=== PATIENT | male | born 1980 ===

== ENCOUNTER 2018-05-25 18:40 | Observation (INO) | payer MEDICAID ==
[2018-05-25 18:48] VITALS: BMI 34.4
[2018-05-25] MEDS ORDERED: Sodium Chloride 0.9% 1,000 ML IV STA (19:35)
--- NOTE | 2018-05-25 20:01 | ED PDOC ---
Arrival/HPI - General Historian: Patient - History of Present Illness Time/Duration: 4-6 hours Symptom Onset: Sudden <Romario Dockery - Last Filed: 05/25/18 22:49> <Evans Stephens - Last Filed: 05/25/18 23:17> - General Chief Complaint: Flu-like Symptoms Time Seen by Provider: 05/25/18 18:53 - History of Present Illness Narrative History of Present Illness (Text): PGY-[address] 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 Pt states that this morning he woke feeling these general symptoms before going to the methadone clinic where he received 88 mg methadone. Pt states that the methadone failed to relieve his symptoms at all and patient felt he was experiencing withdrawal symptoms, so patient took 1 bag of heroine IV. The patient came to the ED this evening as he symptoms continued to persist. Pt denies currently using heroin regularly, however did admit to using 3 bags 3 days ago. Pt vomited yellow vomitus this morning without blood. Pt also admitted to experiencing diarrhea earlier. Pt is also complaining of acute lower back pain causing discomfort while lying flat. 05/25/18 22:41 (Romario Dockery) Past Medical History - Cardiac Hx Cardiac Disorders: No (denies) - Psychiatric Hx Substance Use: Yes (heroin, cocaine, marijuana) - Anesthesia Hx Anesthesia: No <Romario Dockery - Last Filed: 05/25/18 22:49> Family/Social History Family/Social History: No Known Family HX Smoking Status: Heavy Smoker > 10 Cigarettes Daily Hx Alcohol Use: Yes Frequency of alcohol use: Few days per week Hx Substance Use: Yes (heroin, cocaine, marijuana) <Romario Dockery - Last Filed: 05/25/18 22:49> <Evans Stephens - Last Filed: 05/25/18 23:17> Narrative Family History (Free Text): 05/25/18 20:02 Mother: DM Father: Esophageal CA in 70s (Romario Dockery) Allergies/Home Meds <Romario Dockery - Last Filed: 05/25/18 22:49> <NikaJoshua camarillosudhakar Smith - Last Filed: 05/25/18 23:17> Allergies/Adverse Reactions: Allergies No Known Allergies Allergy (Verified 05/25/18 18:48) Review of Systems - Review of Systems Constitutional: Fatigue, Other (+Chills) Eyes: Normal. absent: Photophobia, Eye Pain ENT: Normal Respiratory: Normal. absent: SOB, Cough, Sputum Cardiovascular: Palpitations. absent: Chest Pain, Edema, TYLER Gastrointestinal: Constipation, Nausea, Vomiting. absent: Abdominal Pain, Stool Changes, Hematochezia, Hematemesis Genitourinary Male: absent: Frequency, Hematuria Musculoskeletal: Back Pain Skin: Normal Neurological: Dizziness. absent: Headache <Romario Dockery - Last Filed: 05/25/18 22:49> Physical Exam Temperature: Afebrile Blood Pressure: Hypertensive Pulse: Tachycardic Respiratory Rate: Normal Appearance: Positive for: Ill-Appearing Pain Distress: Mild Mental Status: Positive for: Alert and Oriented X 3. No: Confused, Agitated - Systems Exam Head: Present: Atraumatic, Normocephalic Pupils: Present: PERRL Extroacular Muscles: Present: EOMI Conjunctiva: Present: Normal Mouth: Present: Moist Mucous Membranes Pharnyx: Present: Normal. No: ERYTHEMA, EXUDATE Nose (External): Present: Atraumatic Cardiovascular: Present: Regular Rate and Rhythm, Normal S1, S2, Peripheal Pulses Present. No: Murmurs Abdomen: Present: Normal Bowel Sounds. No: Tenderness, Distention, Rebound, Guarding Upper Extremity: Present: NORMAL PULSES, Other (+track nunn present on R forearm) Lower Extremity: Present: Normal Inspection, NORMAL PULSES. No: Edema Neurological: Present: GCS=15, CN II-XII Intact, Speech Normal, Motor Func Grossly Intact, Normal Sensory Function, Normal Cerebellar Funct, Normal 2Pt Descrimination Skin: Present: Warm, Normal Color Psychiatric: Present: Alert, Oriented x 3 <Romario Dockery - Last Filed: 05/25/18 22:49> <KatEvans L - Last Filed: 05/25/18 23:17> Vital Signs Temp Pulse Resp BP Pulse Ox 05/25/18 22:48 100.2 F H 05/25/18 22:33 100.2 F H 62 16 144/78 99 05/25/18 19:16 113 H 20 141/72 100 05/25/18 18:57 99.1 F 18 141/72 100 Medical Decision Making <Romario Dockery - Last Filed: 05/25/18 22:49> <Evans Stephens - Last Filed: 05/25/18 23:17> ED Course and Treatment: 05/25/18 20:08 Patient is being treated symptomatically for acute opioid withdrawal Recieved Methodone 88mg this morning, used one bag heroin IV this morning Recieved IV Zofran 4mg, IV ativan 2mg, 1 IV bolus NS Continue to treat symptomatically and reassess in one hour 05/25/18 22:42 SIRS criteria: Fever 103F, Pulse 91 Tylenol given for fever Fever: Lumbar/paraspinal tenderness appreciated - CT Lumbar Spine to r/o Spinal abscess 2/2 IVDU; admitted to diarrhea- possible viral etiology 05/25/18 22:44 (Romario Dockery) 05/25/18 21:14 Fermin Leary is a 37 year old male who presents to the emergency department with a complaint of chills, nausea, vomiting, diarrhea, headache, and fatigue all of which began this morning. In agreement with resident note, which includes further HPI details. Patient was seen and evaluated with resident, came up with plan and treatment together. Patient has symptoms of opiate withdrawal. RN informed us he had Temp of 103F orally. He was treated with tylenol and improved. Continued IV fluids. Since patient was c/o low lumbar pain in an IVDU will consider spinal abscess. No saddle anesthesia. 5/5 MS, sensation intaction. He says he's had this back pain on and off for a while. 05/25/18 23:16: Patient appears much better. He is no longer having back pain and is walking with no issues. Sign out to Dr. Conner to f/u labs and CT. Reeval and disposition. (Evans Stephens) - Lab Interpretations Lab Results: 05/25/18 21:45 Lab Results 05/25/18 21:45: WBC 5.0, RBC 4.01, Hgb 12.4 L, Hct 37.4 L, MCV 93.3, MCH 30.9, MCHC 33.2, RDW 13.9, Plt Count 156, MPV 10.3, Gran % 96.0 H, Lymph % (Auto) 3.0 L, [place] % (Auto) 0.6 L, Eos % (Auto) 0.4 L, Baso % (Auto) 0.0, Gran # 4.82, Lymph # (Auto) 0.2 L, [place] # (Auto) 0.0 L, Eos # (Auto) 0.0, Baso # (Auto) 0.00 , Neutrophils % (Manual) Pending, Lymphocytes % (Manual) Pending, Monocytes % ( Manual) Pending - RAD Interpretation Radiology Orders: 05/25/18 21:02 LUMBAR SPINE W/CONTRAST [CT] Stat - Medication Orders Current Medication Orders: Discontinued Medications Acetaminophen (Tylenol 325mg Tab) 975 mg PO STAT STA Stop: 05/25/18 22:32 Last Admin: 05/25/18 22:48 Dose: 975 mg MAR Pain/Vitals Document 05/25/18 22:48 MS (Rec: 05/25/18 22:48 MS [id number]) Pain Reassessment Is This A Pain ReAssessment? No Sleep Is patient sleeping during reassessment? No Presence of Pain Presence of Pain Yes Vitals Temperature (97.6 F-99.6 F) 100.2 F Temperature Source Oral Sodium Chloride (Sodium Chloride 0.9%) 1,000 mls @ 999 mls/hr IV .Q1H1M STA Stop: 05/25/18 20:35 Last Admin: 05/25/18 20:30 Dose: 999 mls/hr eMAR Start Stop Document 05/25/18 20:30 MS (Rec: 05/25/18 20:50 MS [id number]) Intravenous Solution Start Date 05/25/18 Start Time 20:50 End Date 05/25/18 End time 21:50 Total Infusion Time 60 Lorazepam (Ativan) 2 mg IVP ONCE ONE PRN Reason: Protocol Stop: 05/25/18 19:32 Last Admin: 05/25/18 20:30 Dose: 2 mg IVP Administration Document 05/25/18 20:30 MS (Rec: 05/25/18 20:49 MS [id number]) Charges for Administration # of IVP Administrations 1 Ondansetron HCl (Zofran Inj) 4 mg IVP STAT STA Stop: 05/25/18 19:41 Last Admin: 05/25/18 20:30 Dose: 4 mg IVP Administration Document 05/25/18 20:30 MS (Rec: 05/25/18 20:50 MS [id number]) Charges for Administration # of IVP Administrations 1 <Romario Dockery - Last Filed: 05/25/18 22:49> - Scribe Statement The provider has reviewed the documentation as recorded by the Scribe <Evans Stephens - Last Filed: 05/25/18 23:17> - Scribe Statement Rosetta Law Provider Scribe Attestation: All medical record entries made by the Scribe were at my direction and personally dictated by me. I have reviewed the chart and agree that the record accurately reflects my personal performance of the history, physical exam, medical decision making, and the department course for this patient. I have also personally directed, reviewed, and agree with the discharge instructions and disposition. (Evans Stephens) Disposition/Present on Arrival - Present on Arrival Any Indicators Present on Arrival: No History of DVT/PE: No History of Uncontrolled Diabetes: No Urinary Catheter: No History of Decub. Ulcer: No History Surgical Site Infection Following: None - Disposition Have Diagnosis and Disposition been Completed?: Yes Disposition Time: 22:49 <Romario Dockery - Last Filed: 05/25/18 22:49> <Evans Stephens - Last Filed: 05/25/18 23:17> - Disposition Diagnosis: Opioid withdrawal Patient Problems: Current Active Problems Problem Status Onset Opioid withdrawal Acute Condition: FAIR Referrals: Colin Landry MD [Primary Care Provider] - Follow up with primary Forms: [facility] ([place])
[2018-05-25] MEDS ORDERED: Morphine 4 mg/ml ISec IVP STA (21:04)
[2018-05-25 22:30] LABS: EOS % 0.4 % (1.5-5.0); GRAN # 4.82 (1.4-6.5); HEMOGLOBIN 12.4 g/dL (14.0-18.0); LYMPH # 0.2 (1.2-3.4); MEAN CELL VOLUME 93.3 fl (80.0-105.0); MEAN CORPUSCULAR HEMOGLOBIN 30.9 pg (25.0-35.0); MEAN CORPUSCULAR HGB CONC 33.2 g/dl (31.0-37.0); MEAN PLATELET VOLUME 10.3 fl (7.0-11.0); MONO % 0.6 % (1.0-6.0); PLATELET COUNT 156 10^3/uL (120.0-450.0); RBC 4.01 10^6/uL (3.5-6.1); RED CELL DISTRIBUTION WIDTH 13.9 % (11.5-14.5)
[2018-05-25] MEDS ORDERED: Iohexol 300 100 ML IJ ONE (22:45)
[2018-05-25 23:37] LABS: ALB/GLOB RATIO 1.1 (1.1-1.8); ALBUMIN 3.7 g/dL (3.0-4.8); ALT/SGPT 124 U/L (7-56); AST/SGOT 195 U/L (17-59); BLOOD UREA NITROGEN 24 mg/dL (7-21); CALCIUM 8.7 mg/dL (8.4-10.5); GFR AFRICAN-AMERICAN > 60; GFR NON-AFRICAN AMERICAN > 60
[2018-05-25] MEDS ORDERED: SODIUM CHLORIDE IVPB ONE (23:45)
[2018-05-25] MEDS ORDERED: POTASSIUM PHOSPHATE IVPB ONE (23:45)
--- NOTE | 2018-05-26 00:01 | ED PDOC ---
Physical Exam Vital Signs Temp Pulse Resp BP Pulse Ox 05/25/18 22:48 100.2 F H 05/25/18 22:33 100.2 F H 62 16 144/78 99 05/25/18 19:16 113 H 20 141/72 100 05/25/18 18:57 99.1 F 18 141/72 100 Medical Decision Making ED Course and Treatment: 05/25/18 23:30 Case endorsed to me by Dr. Stephens pending CT Scan of lumbar spine. Patient presents complaining of flu-like symptoms, chills, nausea, and generalized fatigue. Patient has a history of IV heroin abuse on Methadone. Patient states he had taken a bag of heroin intravenously and believed he may have been having withdrawal symptoms. Patient with persistent symptoms brings him to the emergency room. Patient noted to have a fever in the emergency room. There was a low level suspicion for possible spinal involvement due to history of patient' s substance abuse. Just noted patient with very low phosphorous level on labs.Also noted bandemia on CBC differential Patient currently stable and ambulatory in ER with no complaints. EXAM: CT Lumbar Spine With Intravenous Contrast Dictated and Authenticated by: Sonny Salazar MD 05/26/2018 1:21 AM IMPRESSION: No acute findings. 05/26/18 01:40 case discussed with Sales And Service Technician and Dr. Gutierrez Flores who is aware and agrees with the plan. Accepts patient into hospitalist service for further evaluation.Supplemental IV phosphate/iv antibiotics started. - Lab Interpretations Lab Results: 05/25/18 21:45 05/25/18 22:49 Lab Results 05/25/18 22:49: Sodium 135, Potassium 4.0, Chloride 100, Carbon Dioxide 26, Anion Gap 13, BUN 24 H, Creatinine 1.3, Est GFR ( Amer) > 60, Est GFR ( Non-Af Amer) > 60, Random Glucose 171 H, Calcium 8.7, Phosphorus 0.6 L*, Magnesium 1.4 L, Total Bilirubin 0.8, AST 195 H, ALT 124 H, Alkaline Phosphatase 91, Total Protein 7.1, Albumin 3.7, Globulin 3.3, Albumin/Globulin Ratio 1.1 05/25/18 21:45: WBC 5.0, RBC 4.01, Hgb 12.4 L, Hct 37.4 L, MCV 93.3, MCH 30.9, MCHC 33.2, RDW 13.9, Plt Count 156, MPV 10.3, Gran % 96.0 H, Lymph % (Auto) 3.0 L, [place] % (Auto) 0.6 L, Eos % (Auto) 0.4 L, Baso % (Auto) 0.0, Gran # 4.82, Lymph # (Auto) 0.2 L, [place] # (Auto) 0.0 L, Eos # (Auto) 0.0, Baso # (Auto) 0.00 , Neutrophils % (Manual) 79 H, Band Neutrophils % 11 H*, Lymphocytes % (Manual) 8 L, Monocytes % (Manual) TEST NOT PERFORMED, Eosinophils % (Manual) 1, Metamyelocytes % 1, Platelet Evaluation Normal - RAD Interpretation Radiology Orders: 05/25/18 21:02 LUMBAR SPINE W/CONTRAST [CT] Stat - Medication Orders Current Medication Orders: Potassium Phosphate 7.5 mmole/ (Sodium Chloride) 252.5 mls @ 42.5 mls/hr IVPB ONCE ONE Stop: 05/26/18 05:41 Last Admin: 05/26/18 01:54 Dose: 42.5 mls/hr eMAR Start Stop Document 05/26/18 01:54 MS (Rec: 05/26/18 01:55 MS [id number]) Intravenous Solution Start Date 05/26/18 Start Time 01:54 Vancomycin HCl (Vancomycin 1gm) 1 gm in 250 mls @ 167 mls/hr IVPB STAT STA PRN Reason: Protocol Stop: 05/26/18 02:10 Discontinued Medications Acetaminophen (Tylenol 325mg Tab) 975 mg PO STAT STA Stop: 05/25/18 22:32 Last Admin: 05/25/18 22:48 Dose: 975 mg MAR Pain/Vitals Document 05/25/18 22:48 MS (Rec: 05/25/18 22:48 MS [id number]) Pain Reassessment Is This A Pain ReAssessment? No Sleep Is patient sleeping during reassessment? No Presence of Pain Presence of Pain Yes Vitals Temperature (97.6 F-99.6 F) 100.2 F Temperature Source Oral Sodium Chloride (Sodium Chloride 0.9%) 1,000 mls @ 999 mls/hr IV .Q1H1M STA Stop: 05/25/18 20:35 Last Admin: 05/25/18 20:30 Dose: 999 mls/hr eMAR Start Stop Document 05/25/18 20:30 MS (Rec: 05/25/18 20:50 MS [id number]) Intravenous Solution Start Date 05/25/18 Start Time 20:50 End Date 05/25/18 End time 21:50 Total Infusion Time 60 Ceftriaxone Sodium (Rocephin 1 Gram Ivpb) 1 gm in 100 mls @ 200 mls/hr IV ONCE STA PRN Reason: Protocol Stop: 05/26/18 01:01 Last Admin: 05/26/18 01:08 Dose: 200 mls/hr eMAR Start Stop Document 05/26/18 01:08 MS (Rec: 05/26/18 01:08 MS [id number]) Intravenous Solution Start Date 05/26/18 Start Time 01:08 End Date 05/26/18 End time 01:38 Total Infusion Time 30 Lorazepam (Ativan) 2 mg IVP ONCE ONE PRN Reason: Protocol Stop: 05/25/18 19:32 Last Admin: 05/25/18 20:30 Dose: 2 mg IVP Administration Document 05/25/18 20:30 MS (Rec: 05/25/18 20:49 MS [id number]) Charges for Administration # of IVP Administrations 1 Ondansetron HCl (Zofran Inj) 4 mg IVP STAT STA Stop: 05/25/18 19:41 Last Admin: 05/25/18 20:30 Dose: 4 mg IVP Administration Document 05/25/18 20:30 MS (Rec: 05/25/18 20:50 MS [id number]) Charges for Administration # of IVP Administrations 1 - Scribe Statement The provider has reviewed the documentation as recorded by the Tiffanie Chin Provider Scribe Attestation: All medical record entries made by the Scribgriselda were at my direction and personally dictated by me. I have reviewed the chart and agree that the record accurately reflects my personal performance of the history, physical exam, medical decision making, and the department course for this patient. I have also personally directed, reviewed, and agree with the discharge instructions and disposition. Disposition/Present on Arrival - Present on Arrival Any Indicators Present on Arrival: No History of DVT/PE: No History of Uncontrolled Diabetes: No Urinary Catheter: No History of Decub. Ulcer: No History Surgical Site Infection Following: None - Disposition Have Diagnosis and Disposition been Completed?: Yes Diagnosis: Opioid withdrawal, Hypophosphatemia, Fever Disposition: HOSPITALIZED Disposition Time: 01:50 Patient Plan: Observation Patient Problems: Current Active Problems Problem Status Onset Fever Acute Hypophosphatemia Acute Opioid withdrawal Acute Condition: FAIR
[2018-05-26 00:20] LABS: NEUTROPHIL 79 % (50.0-70.0)
[2018-05-26 00:22] LABS: BAND 11 % (0-2); EOSINOPHIL 1 % (0.0-3.0); LYMPHOCYTE 8 % (22.0-35.0); METAMYELOCYTE 1 %; PLATELET ESTIMATE NORMAL (NORMAL)
[2018-05-26] MEDS ORDERED: cefTRIAXone 1 gm 1 GM/100 ML BAG IV STA (00:32)
[2018-05-26] MEDS ORDERED: Vancomycin 1gm in NS 250ml 1 GM/250 ML BAG IVPB STA ×2 (00:41→06:33)
--- NOTE | 2018-05-26 02:59 | CP.PCM.HP ---
<Tori Dominguez - Last Filed: 05/26/18 02:44> History of Present Illness - History of Present Illness History of Present Illness: CC: Low Back Pain, Flu-like syndrome HPI: 37 M with a PMHx of inguinal hernia, known and treated hep C, IV heroine use, on methadone (88mg daily [facility]) that presented to [facility] ED with complaints of low back pain and flu-like symptoms. Patient stated that his symptoms began this morning with flu-like symptoms including fever, chills, diaphoretic, nausea, and vomiting. He states that his symptoms did not improve after receiving his methadone. He states that he received his methadone around 12pm and felt as if it was under-dosed and subsequently sought a 2 bags of heroin to inject to help with what he thought to be withdrawal symptoms. His localized non-radiating low back pain began at 2pm rated at a 7/10 in intensity. He refused taking any other medications to help with the pain. Pt admitted to vomiting bilious non bloody emesis this afternoon, as well as paresthesias mainly in the fingers and foot. He also experienced loose stools. He denied shortness of breath, abdominal pain, blurry vision, headache, constipation, urinary symptoms. Pt is ambulating without much issue. In ED, pt found to have fever, tachycardic and hypophosphotemic. CT spine pending. PMHx: inguinal hernia, known and treated hep C, IV heroine use, on methadone ( 88mg daily [facility]) PSHx: Denied SHx: Heavy smoker, marijuana, heroin iv, cocain, etoh 2x week FamHx: Noncontributory Allergies: NKDA Meds: None Present on Admission - Present on Admission Any Indicators Present on Admission: No Review of Systems - Review of Systems Review of Systems: per HPI otherwise negative Past Patient History - Past Social History Smoking Status: Heavy Smoker > 10 Cigarettes Daily - CARDIAC Hx Cardiac Disorders: No (denies) - PSYCHIATRIC Hx Substance Use: Yes (heroin, cocaine, marijuana) - SURGICAL HISTORY Hx Surgeries: No - ANESTHESIA Hx Anesthesia: No Meds Allergies/Adverse Reactions: Allergies Allergy/AdvReac Type Severity Reaction Status Date / Time No Known Allergies Allergy Verified 05/25/18 18:48 Physical Exam - Constitutional Appears: No Acute Distress - Head Exam Head Exam: ATRAUMATIC, NORMAL INSPECTION, NORMOCEPHALIC - Eye Exam Eye Exam: EOMI, Normal appearance, PERRL Pupil Exam: NORMAL ACCOMODATION, PERRL - ENT Exam ENT Exam: Mucous Membranes Moist, Normal Exam - Respiratory Exam Respiratory Exam: Clear to Auscultation Bilateral, NORMAL BREATHING PATTERN - Cardiovascular Exam Cardiovascular Exam: REGULAR RHYTHM, RRR, +S1, +S2 - GI/Abdominal Exam GI & Abdominal Exam: Normal Bowel Sounds, Soft. absent: Tenderness Additional comments: reducible inguinal hernia - Extremities Exam Extremities exam: Positive for: normal inspection - Neurological Exam Neurological exam: Alert, CN II-XII Intact, Normal Gait, Oriented x3, Reflexes Normal - Psychiatric Exam Psychiatric exam: Normal Affect, Normal Mood - Skin Skin Exam: Dry, Intact, Normal Color, Warm Results - Vital Signs Recent Vital Signs: Last Vital Signs Temp 100.2 F H 05/25/18 22:48 Pulse 76 05/26/18 02:14 Resp 16 05/26/18 02:14 BP 126/78 05/26/18 02:14 Pulse Ox 99 05/26/18 02:14 - Labs Result Diagrams: 05/25/18 21:45 05/25/18 22:49 Assessment & Plan - Assessment and Plan (Free Text) Assessment: 37 M with a PMHx of inguinal hernia, known and treated hep C, IV heroine use, on methadone (88mg daily [facility]) that presented to [facility] ED with complaints of low back pain and flu-like symptoms found to have fever, tachycardic and hypophosphatemic. Low Back Pain - hx of IVDU - concerns of spinal abscess - flexeril TID prn - fever, tachy in ED - fu rivero cx - IV Vanc Rocephin - ID Consult - CT spine pending, may fu with MRI if needed Hypophosphatemia - supplement and recheck in AM Polysubstance abuse - [facility] - [facility] protocol - banana bag Tobacco abuse - nicoderm patch - counselled and encouraged tobacco cessation DVT/GI ppx seen reviewed and discussed with Dr. Gutierrez Dominguez, PGY3 <Isabel Flores - Last Filed: 05/26/18 22:20> Results - Vital Signs Recent Vital Signs: Last Vital Signs Temp 98.7 F 05/26/18 18:00 Pulse 76 05/26/18 18:00 Resp 18 05/26/18 18:00 BP 105/56 L 05/26/18 18:00 Pulse Ox 98 05/26/18 07:20 - Labs Result Diagrams: 05/26/18 09:30 05/26/18 09:30 Labs: Laboratory Results - last 24 hr 05/26/18 05/26/18 05/26/18 04:00 09:30 09:30 WBC RBC Hgb Hct MCV MCH MCHC RDW Plt Count MPV Gran % Lymph % (Auto) [place] % (Auto) Eos % (Auto) Baso % (Auto) Gran # Lymph # (Auto) [place] # (Auto) Eos # (Auto) Baso # (Auto) Sodium Potassium Chloride Carbon Dioxide Anion Gap BUN Creatinine Est GFR ( Amer) Est GFR (Non-Af Amer) POC Glucose (mg/dL) Random Glucose Calcium Phosphorus Magnesium Total Bilirubin AST ALT Alkaline Phosphatase Total Protein Albumin Globulin Albumin/Globulin Ratio Procalcitonin 52.46 H Urine Color Yellow Urine Appearance Clear Urine pH 6.0 Ur Specific [place] <= 1.005 Urine Protein Negative Urine Glucose (UA) Negative Urine Ketones Negative Urine Blood Negative Urine Nitrate Negative Urine Bilirubin Negative Urine Urobilinogen 0.2 Ur Leukocyte Esterase Negative Urine Opiates Screen Negative Urine Methadone Screen Positive H Ur Barbiturates Screen Negative Ur Phencyclidine Scrn Negative Ur Amphetamines Screen Negative U Benzodiazepines Scrn Negative U Oth Cocaine Metabols Positive H U Cannabinoids Screen Negative 05/26/18 05/26/18 05/26/18 09:30 09:30 11:35 WBC 20.6 H D RBC 3.89 Hgb 12.0 L Hct 35.6 L MCV 91.5 MCH 30.8 MCHC 33.7 RDW 14.1 Plt Count 126 MPV 10.3 Gran % 88.9 H Lymph % (Auto) 5.4 L [place] % (Auto) 5.3 Eos % (Auto) 0.3 L Baso % (Auto) 0.1 Gran # 18.27 H Lymph # (Auto) 1.1 L [place] # (Auto) 1.1 H Eos # (Auto) 0.1 Baso # (Auto) 0.02 Sodium 138 Potassium 4.3 Chloride 103 Carbon Dioxide 26 Anion Gap 14 BUN 24 H Creatinine 1.1 Est GFR ( Amer) > 60 Est GFR (Non-Af Amer) > 60 POC Glucose (mg/dL) 133 H Random Glucose 106 Calcium 8.6 Phosphorus 4.2 Magnesium 1.9 Total Bilirubin 0.4 AST 85 H D ALT 92 H Alkaline Phosphatase 83 Total Protein 6.6 Albumin 3.5 Globulin 3.2 Albumin/Globulin Ratio 1.1 Procalcitonin Urine Color Urine Appearance Urine pH Ur Specific [place] Urine Protein Urine Glucose (UA) Urine Ketones Urine Blood Urine Nitrate Urine Bilirubin Urine Urobilinogen Ur Leukocyte Esterase Urine Opiates Screen Urine Methadone Screen Ur Barbiturates Screen Ur Phencyclidine Scrn Ur Amphetamines Screen U Benzodiazepines Scrn U Oth Cocaine Metabols U Cannabinoids Screen 05/26/18 05/26/18 16:25 21:19 WBC RBC Hgb Hct MCV MCH MCHC RDW Plt Count MPV Gran % Lymph % (Auto) [place] % (Auto) Eos % (Auto) Baso % (Auto) Gran # Lymph # (Auto) [place] # (Auto) Eos # (Auto) Baso # (Auto) Sodium Potassium Chloride Carbon Dioxide Anion Gap BUN Creatinine Est GFR ( Amer) Est GFR (Non-Af Amer) POC Glucose (mg/dL) 130 H 117 H Random Glucose Calcium Phosphorus Magnesium Total Bilirubin AST ALT Alkaline Phosphatase Total Protein Albumin Globulin Albumin/Globulin Ratio Procalcitonin Urine Color Urine Appearance Urine pH Ur Specific [place] Urine Protein Urine Glucose (UA) Urine Ketones Urine Blood Urine Nitrate Urine Bilirubin Urine Urobilinogen Ur Leukocyte Esterase Urine Opiates Screen Urine Methadone Screen Ur Barbiturates Screen Ur Phencyclidine Scrn Ur Amphetamines Screen U Benzodiazepines Scrn U Oth Cocaine Metabols U Cannabinoids Screen
[2018-05-26] MEDS ORDERED: Multivitamin (MVI) 10 ML, Thiamine 100 MG, Folic Acid 1 MG in Sodium Chloride 0.9% 1,00... IV ONE (03:07)
[2018-05-26 03:46] LABS: HDL CHOLESTEROL 55 mg/dL (29-60)
[2018-05-26 03:56] LABS: LDL CHOLESTEROL 42 mg/dL (0-129)
[2018-05-26] MEDS: Pantoprazole 20 mg EC Tab PO SCH ×2 (06:27→16:01)
--- NOTE | 2018-05-26 07:40 | CT ---
Date of service: 05/25/2018 PROCEDURE: CT Lumbar Spine with contrast HISTORY: low back pain/ r/o spinal abscess COMPARISON: None available. TECHNIQUE: Axial computed tomography images were obtained of the lumbar spine without the use of intravenous contrast. Coronal and sagittal reformatted images were created and reviewed. Radiation dose: Total exam DLP = 521 mGy-cm. This CT exam was performed using one or more of the following dose reduction techniques: Automated exposure control, adjustment of the mA and/or kV according to patient size, and/or use of iterative reconstruction technique. FINDINGS: VERTEBRAE: Unremarkable. No fracture. Normal alignment. DISCS/SPINAL CANAL/NEURAL FORAMINA: L1-2: Unremarkable. L2-3: Unremarkable. L3-4: Unremarkable. L4-5: Unremarkable. L5-S1: Bilateral spondylolysis with mild spondylolisthesis PARASPINAL SOFT TISSUES: Unremarkable. OTHER FINDINGS: The report concurs with the preliminary [facility] report IMPRESSION: No acute findings. No evidence of abscess. Bilateral spondylolysis at L5 with mild spondylolisthesis at L5-S1
--- NOTE | 2018-05-26 09:04 | CARD ---
APPROVED REPORT Date of service: 05/26/2018 EKG Measurement Heart [id number] ID [id number] <Conclusion> Normal sinus rhythm Normal ECG
[2018-05-26 09:25] LABS: URINE BILIRUBIN NEGATIVE (NEGATIVE); URINE BLOOD NEGATIVE (NEGATIVE); URINE GLUCOSE (UA) NEGATIVE (NEGATIVE); URINE LEUKOCYTE ESTERASE NEGATIVE Leu/uL (NEGATIVE); URINE PROTEIN NEGATIVE mg/dL (<30 mg/dL); URINE UROBILINOGEN 0.2 E.U./dL (<1 E.U./dL)
[2018-05-26 09:45] LABS: URINE APPEARANCE CLEAR (CLEAR); URINE COLOR YELLOW (YELLOW)
[2018-05-26 09:52] LABS: BASO # 0.02 K/mm3 (0.0-2.0); BASO % 0.1 % (0.0-3.0); EOS # 0.1 (0.0-0.7); EOS % 0.3 % (1.5-5.0); GRAN # 18.27 (1.4-6.5); GRAN % 88.9 % (50.0-68.0); LYMPH # 1.1 (1.2-3.4); LYMPH % 5.4 % (22.0-35.0); MEAN CELL VOLUME 91.5 fl (80.0-105.0); MEAN CORPUSCULAR HEMOGLOBIN 30.8 pg (25.0-35.0); MEAN CORPUSCULAR HGB CONC 33.7 g/dl (31.0-37.0); MEAN PLATELET VOLUME 10.3 fl (7.0-11.0); MONO # 1.1 (0.1-0.6); MONO % 5.3 % (1.0-6.0); RBC 3.89 10^6/uL (3.5-6.1); RED CELL DISTRIBUTION WIDTH 14.1 % (11.5-14.5)
[2018-05-26 09:55] LABS: ALB/GLOB RATIO 1.1 (1.1-1.8); ALBUMIN 3.5 g/dL (3.0-4.8); ALT/SGPT 92 U/L (7-56); AST/SGOT 85 U/L (17-59); BLOOD UREA NITROGEN 24 mg/dL (7-21); CALCIUM 8.6 mg/dL (8.4-10.5); GFR AFRICAN-AMERICAN > 60; GFR NON-AFRICAN AMERICAN > 60
[2018-05-26 09:58] LABS: OPIATES, UR NEGATIVE (NEGATIVE)
[2018-05-26 10:02] LABS: WHITE BLOOD COUNT 20.6 10^3/ul (4.5-11.0)
[2018-05-26 10:07] LABS: BARBITURATES, UR NEGATIVE (NEGATIVE); BENZODIAZEPINES, UR NEGATIVE (NEGATIVE); PHENCYCLIDINE, UR NEGATIVE (NEGATIVE)
[2018-05-26 12:33] LABS: HEPATITIS B SURFACE AG Negative (NEGATIVE)
[2018-05-26 12:39] LABS: HEPATITIS A IGM NEGATIVE (NEGATIVE); HEPATITIS B CORE AB NEGATIVE (NEGATIVE)
[2018-05-26 14:30] LABS: HEPATITIS C ANTIBODY REACTIVE (NEGATIVE)
--- NOTE | 2018-05-26 15:10 | CARD ---
APPROVED REPORT Date of service: 05/26/2018 EXAM: Two-dimensional and M-mode echocardiogram with Doppler and color Doppler. INDICATION Infection:Rule out subacute bacterial endocarditis 2D DIMENSIONS Left Atrium (2D)4.0 (1.6-4.0cm)IVSd1.0 (0.7-1.1cm) LVDd5.0 (3.9-5.9cm)PWd1.1 (0.7-1.1cm) LVDs3.4 (2.5-4.0cm)FS (%) 31.9 % LVEF (%)59.7 (>50%) M-Mode DIMENSIONS Aortic Root3.00 (2.2-3.7cm)Aortic Cusp Exc.2.10 (1.5-2.0cm) Aortic Valve AoV Peak Tqhiqrye629.0cm/Ankur Peak GR.10mmHg Mitral Valve MV E Nravbjax721.0cm/sMV A Tawmeebd54.9cm/sE/A ratio1.7 TDI E/Lateral E'0.0E/Medial E'0.0 Tricuspid Valve TR Peak Srnjvzjw978cp/sRAP [id number] Peak Gr.22mmHg [id number] LEFT VENTRICLE The left ventricle is normal size. There is normal left ventricular wall thickness. The left ventricular function is normal. The left ventricular ejection fraction is within the normal range. There is normal LV segmental wall motion. A false tendon is noted (normal variant). RIGHT VENTRICLE The right ventricle is normal size. The right ventricular systolic function is normal. ATRIA The left atrium is borderline dilated. The right atrium size is normal. The interatrial septum is intact with no evidence for an atrial septal defect. AORTIC VALVE The aortic valve is normal in structure. No aortic regurgitation is present. There is no aortic valvular stenosis. There is no aortic valvular vegetation. MITRAL VALVE The mitral valve leaflets are thickened. TRICUSPID VALVE The tricuspid valve is normal in structure. There is mild tricuspid regurgitation. PULMONIC VALVE The pulmonary valve is normal in structure. GREAT VESSELS The aortic root is normal in size. The IVC is normal in size and collapses >50% with inspiration. PERICARDIAL EFFUSION There is no pleural effusion. There is no pericardial effusion. <Conclusion> Borderline LA enlargement. Normal LV size and systolic function. Mild TR. No vegetation seen, but if clinical supicion is high, consider ALBERTA imaging.
[2018-05-26] MEDS: Vancomycin 1gm in NS 250ml 1 GM/250 ML BAG IVPB SCH (16:00)
--- NOTE | 2018-05-26 16:03 | RAD ---
Date of service: 05/26/2018 HISTORY: Pneumonia COMPARISON: No prior. TECHNIQUE: Chest PA and lateral FINDINGS: LUNGS: No dense consolidation. Horizontal band like opacity overlying the lung base posteriorly atelectasis here is compatible with this. No effusion seen Reason for the atelectasis is unknown. PLEURA: No significant pleural effusion identified. No pneumothorax apparent. CARDIOVASCULAR: Normal. OSSEOUS STRUCTURES: There are equivocal inferior cortical irregularities of the left 6th and 7th ribs - correlation with the detailed past history is recommended. Gross pneumothorax appreciated. VISUALIZED UPPER ABDOMEN: Normal. OTHER FINDINGS: None. IMPRESSION: Horizontal bandlike opacity left posterior lower lobe a resembling subsegmental atelectasis. Possible subtle inferior posterior left rib subacute under subacute chronic fractures no gross pneumothorax. Detailed clinical history correlation recommended
[2018-05-26] MEDS: Cefepime 1gm in NS 100ml 1 GM/100 ML BAG IVPB SCH (22:27)
--- NOTE | 2018-05-26 22:56 | CON ---
Copied To: Varun Wei MD Attending MD: Varun Wei MD. DATE: 05/26/2018 LOCATION: The patient is seen in room 276, bed 1. CHIEF COMPLAINT: Fever times several days. HISTORY OF PRESENT ILLNESS: This is a 37-year-old male who is an active intravenous drug abuser, heroin, who is on chronic methadone therapy, who is admitted with a fevers and chills and generalized aches and pains, minimal cough. Infectious Disease consultation requested. REVIEW OF SYSTEMS: Reveals there has been fevers and chills, shortness of breath, cough. No abdominal pain, diarrhea. No headaches. No blurred vision. He has chronic back pain. PAST MEDICAL HISTORY: Significant for active IV drug abuse, methadone. PAST SURGICAL HISTORY: Noncontributory. ALLERGIES: THE PATIENT HAS NO KNOWN ALLERGIES. MEDICATIONS AT HOME: Include the patient to be on methadone. PHYSICAL EXAMINATION: GENERAL: The patient is in bed, in no acute distress, nontoxic. VITAL SIGNS: Temperature of 100.2, heart rate of 113, respiratory rate of 20, blood pressure is 114/70. HEENT: Examination of HEENT is unremarkable. NECK: Supple. LUNGS: Have decreased breath sounds. HEART: Normal S1, S2. No murmurs are appreciated. ABDOMEN: Soft, nontender. SKIN: No evidence of cellulitis. LABORATORY DATA: Laboratory examination reveals the EKG shows a QTc of 432. History and physical examination of reveals the patient also has hepatitis C and is reviewed. Echo has been ordered and pending. The patient had a CAT scan of the lumbar spine, which is negative. ER doctor, Dr. Conner's note is noted. Laboratory examination reveals a white count of 20,000, the patient has 11% bandemia. Chemistries reveals the creatinine is 1.1, glucose is 133. LFTs are elevated. Procalcitonin is 52. Urinalysis is negative. Toxicology reveals positive for cocaine and methadone. Serology: Hepatitis profile, hepatitis C antibody is positive. ASSESSMENT AND PLAN: A 37-year-old male with active intravenous drug abuser, rule out endocarditis versus rule out pneumonia. We will check on the blood cultures and urine cultures and sputum cultures. We will order a chest x-ray. We will start the patient on vancomycin and cefepime. I will order a sedimentation rate, C-reactive protein. Check on the blood cultures. Treat the patient with vancomycin, cefepime. Should have an human immunodeficiency virus test. I will follow closely with you. Varun Wei MD
[2018-05-27] MEDS: Cefepime 1gm in NS 100ml 1 GM/100 ML BAG IVPB SCH (05:47)
[2018-05-27] MEDS: Vancomycin 1gm in NS 250ml 1 GM/250 ML BAG IVPB SCH (05:48)
[2018-05-27] MEDS: Pantoprazole 20 mg EC Tab PO SCH (05:48)
[2018-05-27 06:16] VITALS: PULSE 56
--- NOTE | 2018-05-27 06:56 | CP.PCM.PN ---
Objective - Vital Signs/Intake and Output Vital Signs (last 24 hours): Temp Pulse Resp BP Pulse Ox 97.8 F 56 L 20 94/48 L 98 05/27/18 06:00 05/27/18 06:00 05/27/18 06:00 05/27/18 06:00 05/27/18 06:00 Intake and Output: 05/26/18 05/27/18 18:59 06:59 Intake Total 660 Balance 660 - Medications Medications: Current Medications Acetaminophen (Tylenol 325mg Tab) 650 mg PO Q4 PRN PRN Reason: Fever >100.4 F Cyclobenzaprine HCl (Flexeril) 5 mg PO TID PRN PRN Reason: Muscle spasm Last Admin: 05/26/18 22:27 Dose: 5 mg Heparin Sodium (Porcine) (Heparin) 5,000 units SC Q12 ARIK PRN Reason: Protocol Last Admin: 05/26/18 22:27 Dose: 5,000 units Cefepime HCl (Maxipime 1gm) 1 gm in 100 mls @ 100 mls/hr IVPB Q8 ARIK PRN Reason: Protocol Stop: 06/04/18 22:01 Last Admin: 05/27/18 05:47 Dose: 100 mls/hr Vancomycin HCl (Vancomycin 1gm) 1 gm in 250 mls @ 167 mls/hr IVPB Q12H ARIK PRN Reason: Protocol Stop: 06/04/18 15:01 Last Admin: 05/27/18 05:48 Dose: 167 mls/hr Lorazepam (Ativan) 1 mg IVP Q2H PRN; Protocol PRN Reason: Symptoms of alcohol withdrawl Last Admin: 05/26/18 23:21 Dose: 1 mg Methadone HCl (Methadone) 90 mg PO DAILY FOR[facility], [facility]1983 Last Admin: 05/26/18 11:58 Dose: 90 mg Nicotine (Nicoderm Cq) 1 patch TD DAILY PRN PRN Reason: URGE TO SMOKE Ondansetron HCl (Zofran Inj) 4 mg IVP Q4H PRN PRN Reason: Nausea/Vomiting Pantoprazole Sodium (Protonix Ec Tab) 20 mg PO 0600,1600 FOR[facility], [facility]1983 Last Admin: 05/27/18 05:48 Dose: 20 mg - Labs Labs: 05/26/18 09:30 05/26/18 09:30
[2018-05-27 07:09] LABS: BASO # 0.02 K/mm3 (0.0-2.0); BASO % 0.2 % (0.0-3.0); EOS # 0.3 (0.0-0.7); EOS % 2.7 % (1.5-5.0); GRAN # 8.98 (1.4-6.5); GRAN % 73.2 % (50.0-68.0); HEMOGLOBIN 11.1 g/dL (14.0-18.0); LYMPH % 16.6 % (22.0-35.0); MEAN CORPUSCULAR HEMOGLOBIN 29.8 pg (25.0-35.0); MEAN CORPUSCULAR HGB CONC 32.4 g/dl (31.0-37.0); MEAN PLATELET VOLUME 10.7 fl (7.0-11.0); MONO # 0.9 (0.1-0.6); MONO % 7.3 % (1.0-6.0); RBC 3.73 10^6/uL (3.5-6.1); RED CELL DISTRIBUTION WIDTH 14.3 % (11.5-14.5); WHITE BLOOD COUNT 12.3 10^3/ul (4.5-11.0)
[2018-05-27 07:12] LABS: INR 1.05; PROTHROMBIN TIME 12.1 SECONDS (9.4-12.5)
[2018-05-27 07:15] LABS: PARTIAL THROMBOPLASTIN TIME 29.7 Seconds (25.1-36.5)
[2018-05-27 07:39] LABS: ALBUMIN 3.2 g/dL (3.0-4.8); ALT/SGPT 73 U/L (7-56); AST/SGOT 50 U/L (17-59); BLOOD UREA NITROGEN 14 mg/dL (7-21); CALCIUM 8.7 mg/dL (8.4-10.5); GFR AFRICAN-AMERICAN > 60; GFR NON-AFRICAN AMERICAN > 60
[2018-05-27] MEDS ORDERED: Sodium Chloride 0.9% 1,000 ML IV SCH (09:00)
--- NOTE | 2018-05-27 10:27 | PN ---
Copied To: Varun Wei MD Attending MD: Varun Wei MD DATE: 05/27/2018 SUBJECTIVE: The patient is in bed, in no acute distress. No fevers and chills. He was seen early this morning in 276. He is doing better. OBJECTIVE: VITAL SIGNS: On exam, temperature is 97, T-max is 100.2, blood pressure is 97/50, respiratory rate of 20. HEENT: Examination is unremarkable. NECK: Supple. LUNGS: Have decreased breath sounds. HEART: Normal S1, S2. ABDOMEN: Soft, nontender. DATA: Laboratory examination reveals a white count of 20,600, hemoglobin of 12, platelets of 126. Chemistries reveal a BUN of 24, creatinine of 1.1, procalcitonin is 52.46. Urinalysis is noted and Toxicology is noted and serology is noted. Microbiology reveals the blood cultures with no growth at 24 hours. The patient had a chest x-ray yesterday which shows a left-sided infiltrate. ASSESSMENT AND PLAN: This is a 37-year-old male who is an active intravenous drug abuser and heroin user and chronic methadone therapy and was admitted with fevers and chills and cough and with negative blood cultures, community-acquired pneumonia and intravenous drug abuser, currently on vancomycin and cefepime. Since the blood cultures are negative, we will discontinue the vancomycin and ordered doxycycline; most likely bacterial pneumonia with an elevated procalcitonin. We will order a urine for Legionella antigen. We will order a MRSA screen and the CAT scan of the chest without contrast. We will follow closely with you. Awaiting for his HIV test. Varun Wei MD
--- NOTE | 2018-05-27 10:42 | CT ---
Date of service: 05/27/2018 PROCEDURE: CT Chest without contrast HISTORY: r/o infil COMPARISON: None available. TECHNIQUE: Contiguous axial images were obtained through the chest without intravenous contrast enhancement. Sagittal and coronal reconstructions were performed. Radiation dose (DLP): mGy-cm. This CT exam was performed using one or more of the following dose reduction techniques: Automated exposure control, adjustment of the mA and/or kV according to patient size, and/or use of iterative reconstruction technique. FINDINGS: LUNGS: Small bibasilar infiltrates, left greater than right. MEDIASTINUM: Unremarkable thoracic aorta. No aneurysm. Normal sized heart. Main pulmonary artery unremarkable. No vascular congestion. No lymphadenopathy. PLEURA: No pleural fluid. No pneumothorax. BONES: No fracture. No destructive lesion. UPPER ABDOMEN: Grossly unremarkable. OTHER FINDINGS: None. IMPRESSION: Small bibasilar infiltrates, left greater than right.
[2018-05-27 11:24] VITALS: BP 102/67; RESP 18; TEMP 98.6
[2018-05-27 12:29] VITALS: O2SAT 96
--- NOTE | 2018-05-27 18:09 | CP.PCM.DIS ---
Provider - Provider Date of Admission: 05/26/18 01:51 Attending physician: Kassy [place] DO Primary care physician: Colin Landry Consults: ID Time Spent in preparation of Discharge (in minutes): 70 Hospital Course - Lab Results Lab Results: Micro Results 05/26/18 09:30 Urine Urine Culture - Final No Growth (<1,000 CFU/ML) Most Recent Lab Values WBC 12.3 10^3/ul (4.5-11.0) H D 05/27/18 06:30 RBC 3.73 10^6/uL (3.5-6.1) 05/27/18 06:30 Hgb 11.1 g/dL (14.0-18.0) L 05/27/18 06:30 Hct 34.3 % (42.0-52.0) L 05/27/18 06:30 MCV 92.0 fl (80.0-105.0) 05/27/18 06:30 MCH 29.8 pg (25.0-35.0) 05/27/18 06:30 MCHC 32.4 g/dl (31.0-37.0) 05/27/18 06:30 RDW 14.3 % (11.5-14.5) 05/27/18 06:30 Plt Count 113 10^3/uL (120.0-450.0) L 05/27/18 06:30 MPV 10.7 fl (7.0-11.0) 05/27/18 06:30 Gran % 73.2 % (50.0-68.0) H 05/27/18 06:30 Lymph % (Auto) 16.6 % (22.0-35.0) L 05/27/18 06:30 [place] % (Auto) 7.3 % (1.0-6.0) H 05/27/18 06:30 Eos % (Auto) 2.7 % (1.5-5.0) 05/27/18 06:30 Baso % (Auto) 0.2 % (0.0-3.0) 05/27/18 06:30 Gran # 8.98 (1.4-6.5) H 05/27/18 06:30 Lymph # (Auto) 2.0 (1.2-3.4) 05/27/18 06:30 [place] # (Auto) 0.9 (0.1-0.6) H 05/27/18 06:30 Eos # (Auto) 0.3 (0.0-0.7) 05/27/18 06:30 Baso # (Auto) 0.02 K/mm3 (0.0-2.0) 05/27/18 06:30 Neutrophils % (Manual) 79 % (50.0-70.0) H 05/25/18 21:45 Band Neutrophils % 11 % (0-2) H* 05/25/18 21:45 Lymphocytes % (Manual) 8 % (22.0-35.0) L 05/25/18 21:45 Monocytes % (Manual) TEST NOT PERFORMED 05/25/18 21:45 Eosinophils % (Manual) 1 % (0.0-3.0) 05/25/18 21:45 Metamyelocytes % 1 % 05/25/18 21:45 Platelet Evaluation Normal (NORMAL) 05/25/18 21:45 ESR 19 mm/hr (0.0-15.0) H 05/27/18 06:30 PT 12.1 SECONDS (9.4-12.5) 05/27/18 06:30 INR 1.05 05/27/18 06:30 APTT 29.7 Seconds (25.1-36.5) 05/27/18 06:30 Sodium 141 mmol/L (132-148) 05/27/18 06:30 Potassium 4.1 mmol/L (3.6-5.0) 05/27/18 06:30 Chloride 106 mmol/L (98-107) 05/27/18 06:30 Carbon Dioxide 27 mmol/L (21-33) 05/27/18 06:30 Anion Gap 13 (10-20) 05/27/18 06:30 BUN 14 mg/dL (7-21) 05/27/18 06:30 Creatinine 0.9 mg/dl (0.8-1.5) 05/27/18 06:30 Est GFR ( Amer) > 60 05/27/18 06:30 Est GFR (Non-Af Amer) > 60 05/27/18 06:30 POC Glucose (mg/dL) 109 mg/dL (65-110) 05/27/18 11:16 Random Glucose 88 mg/dL (70-110) 05/27/18 06:30 Hemoglobin A1c 5.0 % (4.2-6.5) 05/25/18 22:49 Calcium 8.7 mg/dL (8.4-10.5) 05/27/18 06:30 Phosphorus 4.4 mg/dL (2.5-4.5) 05/27/18 06:30 Magnesium 1.9 mg/dL (1.7-2.2) 05/27/18 06:30 Total Bilirubin 0.2 mg/dL (0.2-1.3) 05/27/18 06:30 AST 50 U/L (17-59) 05/27/18 06:30 ALT 73 U/L (7-56) H 05/27/18 06:30 Alkaline Phosphatase 79 U/L (38-126) 05/27/18 06:30 C-Reactive Protein 66.20 mg/L (0.0-9.9) H 05/27/18 06:30 Total Protein 6.3 g/dL (5.8-8.3) 05/27/18 06:30 Albumin 3.2 g/dL (3.0-4.8) 05/27/18 06:30 Globulin 3.1 gm/dL 05/27/18 06:30 Albumin/Globulin Ratio 1.0 (1.1-1.8) L 05/27/18 06:30 Triglycerides 63 mg/dL (35-160) 05/25/18 22:49 Cholesterol 123 mg/dL (130-200) L 05/25/18 22:49 LDL Cholesterol Direct 42 mg/dL (0-129) 05/25/18 22:49 HDL Cholesterol 55 mg/dL (29-60) 05/25/18 22:49 Procalcitonin 52.46 NG/ML (0.19-0.49) H 05/26/18 04:00 TSH 3rd Generation 0.52 mIU/mL (0.46-4.68) 05/25/18 22:49 Urine Color Yellow (YELLOW) 05/26/18 09:30 Urine Appearance Clear (CLEAR) 05/26/18 09:30 Urine pH 6.0 (4.7-8.0) 05/26/18 09:30 Ur Specific [place] <= 1.005 (1.005-1.035) 05/26/18 09:30 Urine Protein Negative mg/dL (<30 mg/dL) 05/26/18 09:30 Urine Glucose (UA) Negative mg/dL (NEGATIVE) 05/26/18 09:30 Urine Ketones Negative mg/dL (NEGATIVE) 05/26/18 09:30 Urine Blood Negative (NEGATIVE) 05/26/18 09:30 Urine Nitrate Negative (NEGATIVE) 05/26/18 09:30 Urine Bilirubin Negative (NEGATIVE) 05/26/18 09:30 Urine Urobilinogen 0.2 E.U./dL (<1 E.U./dL) 05/26/18 09:30 Ur Leukocyte Esterase Negative Angelic/uL (NEGATIVE) 05/26/18 09:30 Urine Opiates Screen Negative (NEGATIVE) 05/26/18 09:30 Urine Methadone Screen Positive (NEGATIVE) H 05/26/18 09:30 Ur Barbiturates Screen Negative (NEGATIVE) 05/26/18 09:30 Ur Phencyclidine Scrn Negative (NEGATIVE) 05/26/18 09:30 Ur Amphetamines Screen Negative (NEGATIVE) 05/26/18 09:30 U Benzodiazepines Scrn Negative (NEGATIVE) 05/26/18 09:30 U Oth Cocaine Metabols Positive (NEGATIVE) H 05/26/18 09:30 U Cannabinoids Screen Negative (NEGATIVE) 05/26/18 09:30 Hepatitis A IgM Ab Negative (NEGATIVE) 05/25/18 22:49 Hep Bs Antigen Negative (NEGATIVE) 05/25/18 22:49 Hep B Core IgM Ab Negative (NEGATIVE) 05/25/18 22:49 Hepatitis C Antibody Reactive (NEGATIVE) 05/25/18 22:49 - Hospital Course Hospital Course: Mr. Leary is a 37yo M with a PMHx of inguinal hernia, known and treated hep C , IV heroine use, on methadone (88mg daily [facility]) that presented to [facility] ED with complaints of low back pain and flu-like symptoms. Patient stated that his symptoms began Friday morning with flu-like symptoms including fever, chills, diaphoretic, nausea, and vomiting. He states that his symptoms did not improve after receiving his methadone. He states that he received his methadone around 12pm and felt as if it was under-dosed and subsequently sought a 2 bags of heroin to inject to help with what he thought to be withdrawal symptoms. His localized non-radiating low back pain began at 2pm rated at a 7/ 10 in intensity. He reported associated numbness in his fingers and feet. Pt reported vomiting bilious non bloody emesis in the afternoon as well as loose stools. He denied shortness of breath, abdominal pain, blurry vision, headache, chest pain, palpitations, constipation, urinary symptoms. In the ED, the pt was found to have a fever of 100.2, was tachycardic and hypophosphotemic with a phosphorous level of 0.4. His urine was positive for methadone and cocaine. He was give Vancomycin and Rocephin, and Potassium Phosphate. He was admitted for tachycardia and hypophosphotemia. Upon admission, he complained of persistent back pain that he rated a 9/10 and persistent numbness in his feet. He claimed his nausea and chills had subsided. His vitals were stable and temperature had decreased to 98.1. Physical exam was remarkable for paraspinal tenderness b/l in the lower back and point tenderness over the L5 spinous process. Sensation in the feet was intact b/l. He had a WBC count of 20.6. Infectious Disease was consulted. They recommended Vancomycin and Cefepime as his antibiotic regimen. He received a CT of the Lumbar spine which showed no abscess, but did show spondylolisis at L5 and spondylolisthesis at L5-S1. He also received an ECHO which showed no vegetations and mild tricuspid regurgitation. Chest CT showed small basilar infiltrates. The following day, the patient complained of persistent back pain, but no recurrence of flu-like symptoms. His physical exam was consistent with the previous day. His WBC count decreased to 12.3 and phosphorous had increased to 4.4. Blood Culture was preliminarily negative and Urine culture had a final result of no growth. At this time, patient requested wish to sign out against medical advice. The medical team advised him to remain in the hospital to complete the course of his treatment, as the source of his possible infections was not yet identified. The risks of leaving before a safe discharge were explained. Patient acknowledged advice but persisted and signed out against medical advice. Discharge Exam - Head Exam Head Exam: ATRAUMATIC, NORMAL INSPECTION, NORMOCEPHALIC - Eye Exam Eye Exam: EOMI, PERRL Pupil Exam: NORMAL ACCOMODATION - ENT Exam ENT Exam: Mucous Membranes Moist - Respiratory Exam Respiratory Exam: Clear to PA & Lateral, NORMAL BREATHING PATTERN. absent: Respiratory Distress - Cardiovascular Exam Cardiovascular Exam: REGULAR RHYTHM, +S1, +S2 - GI/Abdominal Exam GI & Abdominal Exam: Normal Bowel Sounds, Soft. absent: Distended, Tenderness - Extremities Exam Extremities exam: normal inspection, pedal pulses present - Neurological Exam Neurological exam: Alert, Oriented x3 - Skin Skin Exam: Normal Color Discharge Plan - Discharge Medications Prescriptions: Levofloxacin [Levaquin] 750 mg PO DAILY 7 Days #7 tablet - Follow Up Plan Condition: FAIR Disposition: AGAINST MEDICAL ADVICE Patient education suggested?: Yes Instructions: Fever of Unknown Origin, Prescription Drug Misuse, Prescription Drug Withdrawal (DC) Additional Instructions: Explained to patient importance of completing hospital care. Patient expressed wish to leave against medical advice. Communicated to patient the risks of leaving without knowledge of origin of infection and treatment of infection. Instructed patient to take prescribed Levofloxacin daily for 7 days. Instructed patient to follow up with primary doctor upon leaving hospital, and to return to ED if symptoms persist or worsen. Patient understood and repeated instructions back. Referrals: Colin Landry MD [Primary Care Provider] -
== END 2018-05-27 15:31 | disposition left against medical advice (07) ==
LOC: ED 18:40 → ERH 05-26 01:51 → 2RSO 05-26 08:34
PROVIDERS: ADMIT Hospitalist; ATTEND Hospitalist
DX: J18.9 Pneumonia, unspecified organism (principal); R50.9 Fever, unspecified; E83.39 Other disorders of phosphorus metabolism; F11.23 Opioid dependence with withdrawal; F17.210 Nicotine dependence, cigarettes, uncomplicated; F14.10 Cocaine abuse, uncomplicated; F12.10 Cannabis abuse, uncomplicated; M43.17 Spondylolisthesis, lumbosacral region; Z86.19 Personal history of other infectious and parasitic diseases; K40.90 Unilateral inguinal hernia, without obstruction or gangrene, not specified as recurrent
CPT/HCPCS: 36415; 71046; 71250; 72132; 80053; 80061; 80074; 80324; 80345; 80346; 80349; 80353; 80358; 80361; 81003; 82948; 83036; 83735; 83992; 84100; 84145; 84443; 85025; 85610; 85651; 85730; 86140; 86738; 87040; 87086; 87389; 93005; 93306; 96361; 96365; 96366; 96367; 96368; 96372; 96375; 96376; 97116; 97161; 99285; G0378; G8978; G8979; G8980; J0692; J0696; J1644; J2060; J2405; J3411; J7030; Q9967